=== PATIENT | male | born 2000 | race Caucasian/White ===

== ENCOUNTER 2023-02-24 07:16 | Emergency (ER) | payer OTHER ==
[~2023-02-24] VITALS: Ht 188 cm; Wt 88.0 kg
[2023-02-24] MEDS ORDERED: NS 1,000 ML IV ONE (08:30)
[2023-02-24 09:19] LABS: BASO % 0.4 % (0.0-1.0); EOS # 0.2 10^3/uL (0.0-0.5); EOS % 2.4 % (0.0-3.0); HEMATOCRIT 48.7 % (42.0-52.0); HEMOGLOBIN 16.1 g/dl (13.5-17.5); LYMPH % 28.3 % (24.0-44.0); MEAN CORPUSCULAR HGB CONC 33.1 g/dl (32.0-36.5); MEAN CORPUSCULAR VOLUME 93.7 fl (80.0-96.0); MONO # 0.8 10^3/uL (0.0-0.8); MONO % 11.1 % (2.0-8.0); NEUTROPHILS % 56.5 % (36.0-66.0); PLATELET COUNT, AUTOMATED 238 10^3/uL (150-450); WHITE BLOOD COUNT 7.1 10^3/uL (4.0-10.0)
[2023-02-24 09:36] LABS: ALBUMIN 4.1 G/DL (3.2-5.2); ALKALINE PHOSPHATASE 74 U/L (46-116); ALT/SGPT 19 U/L (7.0-40); AST/SGOT 15 U/L (<34); BILIRUBIN,TOTAL 0.5 MG/DL (0.3-1.2); BLOOD UREA NITROGEN 12 MG/DL (9-23); CALCIUM LEVEL 9.5 MG/DL (8.5-10.1); CARBON DIOXIDE LEVEL 28 MMOL/L (20-31); CHLORIDE LEVEL 108 MMOL/L (98-107); CREATININE FOR GFR 1.13 MG/DL (0.70-1.30); GLUCOSE, FASTING 86 MG/DL (60-100); POTASSIUM SERUM 4.8 MMOL/L (3.5-5.1); SODIUM LEVEL 139 MMOL/L (136-145)
[2023-02-24 12:11] VITALS: BP 140/75
[2023-02-24 12:46] LABS: GC DNA AMPLIFICATION NEGATIVE (NEGATIVE)
== END 2023-02-24 12:13 | disposition home or self-care (01) ==
LOC: M ED 07:16
DX: R10.9 Unspecified abdominal pain (principal); R30.0 Dysuria; Z88.1 Allergy status to other antibiotic agents